=== PATIENT | female | born 2000 | race Caucasian/White ===

== ENCOUNTER 2019-04-27 21:14 | Emergency (ER) | payer BC, OTHER | END 2019-04-27 23:12 | disposition left against medical advice (07) | LOC: BURERS 21:14 | DX: Z53.21 Procedure and treatment not carried out due to patient leaving prior to being seen by health care provider (principal) ==

== ENCOUNTER 2022-05-04 17:21 | Emergency (ER) | payer BC, OTHER ==
[2022-05-04] MEDS ORDERED: AMOXicillin 250 MG CAP ONE (18:14)
== END 2022-05-04 19:21 | disposition home or self-care (01) ==
LOC: BURERS 17:21
DX: H66.92 Otitis media, unspecified, left ear (principal)
CPT/HCPCS: 99282